=== PATIENT | male | born 1960 | race Hispanic/Latino ===

== ENCOUNTER 2020-11-21 08:43 | Outpatient (CLI) | payer BC, SELFPAY | END 2020-11-21 08:44 | disposition home or self-care (01) | LOC: ANHCOVIDVC 08:43 | DX: Z23 Encounter for immunization (principal) | CPT/HCPCS: 0001A; 91300 ==

== ENCOUNTER 2020-12-12 08:35 | Outpatient (CLI) | payer BC, SELFPAY | END 2020-12-12 08:36 | disposition home or self-care (01) | LOC: ANHCOVIDVC 08:35 | DX: Z23 Encounter for immunization (principal) | CPT/HCPCS: 0002A; 91300 ==